=== PATIENT | male | born 1945 | race Caucasian/White ===

== ENCOUNTER 2019-09-06 12:02 | Emergency (ER) | payer OTHER ==
[2019-09-06] MEDS ORDERED: Bacitracin Oint 1 GM U/D Packet TOP ONE (13:24)
--- NOTE | 2019-09-06 13:28 | EDM.PDOC ---
ED HPI GENERAL MEDICAL PROBLEM - General Chief Complaint: Laceration Stated Complaint: SEIZURE, FALL HIT HEAD Time Seen by Provider: 09/06/19 12:45 Source of Information: Reports: Patient History Limitations: Reports: No Limitations - History of Present Illness INITIAL COMMENTS - FREE TEXT/NARRATIVE: 74-year-old male had a seizure and struck the back of his head on a metal lamp stand sustaining a laceration. He is here for repair. Onset: Sudden Duration: Hour(s): (1 hour ago) Location: Reports: Head (Left occipital scalp) Associated Symptoms: Reports: No Other Symptoms, Other (Chronic recurring seizures). Denies: Headaches, Shortness of Breath - Related Data Allergies Allergy/AdvReac Type Severity Reaction Status Date / Time No Known Allergies Allergy Verified 09/06/19 12:43 Home Meds: Home Meds Aspirin [Aspirin EC] 325 mg PO DAILY 09/06/19 [History] Citalopram [Citalopram HBr] 40 mg PO DAILY 09/06/19 [History] Diltiazem HCl [Diltiazem 24Hr Cd] 240 mg PO BEDTIME 09/06/19 [History] Levothyroxine [Synthroid] 50 mcg PO DAILY 09/06/19 [History] PHENobarbitaL [Phenobarbital] 64.8 mg PO BID 09/06/19 [History] Rosuvastatin [Crestor] 10 mg PO BEDTIME 09/06/19 [History] atenoloL [Atenolol] 100 mg PO BEDTIME 09/06/19 [History] carBAMazepine [Carbamazepine ER] 400 mg PO TID 09/06/19 [History] Past Medical History HEENT History: Reports: Impaired Vision Cardiovascular History: Reports: Afib, Hypertension Genitourinary History: Reports: Other (See Below) Other Genitourinary History: UTI 1 year ago Neurological History: Reports: Concussion, Seizure Psychiatric History: Reports: Depression Endocrine/Metabolic History: Reports: Hypothyroidism - Past Surgical History HEENT Surgical History: Reports: Cataract Surgery GI Surgical History: Reports: Colonoscopy Musculoskeletal Surgical History: Reports: Other (See Below) Other Musculoskeletal Surgeries/Procedures:: Duputrens contracture Social & Family History - Tobacco Use Smoking Status *Q: Former Smoker Years of Tobacco use: 2 Packs/Tins Daily: 0.5 Used Tobacco, but Quit: Yes Month/Year Tobacco Last Used: 40 years ago Second Hand Smoke Exposure: No - Caffeine Use Caffeine Use: Reports: Coffee, Soda Other Caffeine Use: 1 cup per day. 1 soda per day - Recreational Drug Use Recreational Drug Use: No ED ROS GENERAL - Review of Systems Review Of Systems: See Below Constitutional: Denies: Fever, Chills Respiratory: Denies: Shortness of Breath Cardiovascular: Denies: Chest Pain GI/Abdominal: Denies: Abdominal Pain Neurological: Reports: Confusion (Mild postictal confusion when he first arrived , that is resolved) Psychiatric: Reports: No Symptoms ED EXAM, SKIN/RASH Exam: See Below Exam Limited By: No Limitations General Appearance: Alert, No Apparent Distress Eye Exam: Bilateral Eye: EOMI Head: Other (Patient has a 2 cm scalp laceration on the left occipital scalp, is through the subcutaneous tissue) Respiratory/Chest: No Respiratory Distress Course - Vital Signs Last Recorded V/S: Last Vital Signs Temp 96.2 F L 09/06/19 12:49 Pulse 90 09/06/19 12:49 Resp 17 09/06/19 12:49 BP 134/81 09/06/19 12:49 Pulse Ox 95 09/06/19 12:49 - Orders/Labs/Meds Meds: Medications Discontinued Medications Generic Name Dose Route Start Last Admin Trade Name Flakoq PRN Reason Stop Dose Admin Bacitracin 1 dose 09/06/19 13:24 09/06/19 13:28 Bacitracin Oint 1 Gm TOP 09/06/19 13:25 1 dose ONETIME ONE Administration Lidocaine HCl 5 ml 09/06/19 13:24 09/06/19 13:28 Xylocaine-Mpf 1% INJECT 09/06/19 13:25 5 ml ONETIME ONE Administration - Re-Assessments/Exams Free Text/Narrative Re-Assessment/Exam: 09/06/19 13:39 The wound was anesthetized with 1% lidocaine, washed with tap water, and 5 jumana were used to close the laceration. Topical bacitracin and a wraparound pressure dressing was applied and the jumana can be removed in 1 week. Departure - Departure Time of Disposition: 14:04 Disposition: Home, Self-Care 01 Clinical Impression: Occipital scalp laceration Qualifiers: Encounter type: initial encounter Qualified Code(s): S01.01XA - Laceration without foreign body of scalp, initial encounter - Discharge Information Instructions: Laceration Care, Adult, [id number] Referrals: Gloria Foreman MD [Primary Care Provider] - Forms: ED Department Discharge Care Plan Goals: Keep wound clean while healing and jumana can be removed in 1 week. Recheck sooner if concerns of infection or not healing satisfactorily. Sepsis Event Note (ED) - Evaluation Sepsis Screening Result: No Definite Risk - Focused Exam Vital Signs: Vital Signs Temp Pulse Resp BP Pulse Ox 09/06/19 12:49 96.2 F L 90 17 134/81 95 09/06/19 12:37 96.2 F L 90 17 134/81 95
== END 2019-09-06 14:04 | disposition home or self-care (01) ==
LOC: JP.ED 12:02
DX: S01.01XA Laceration without foreign body of scalp, initial encounter (principal); I48.91 Unspecified atrial fibrillation; I10 Essential (primary) hypertension; F32.9 Major depressive disorder, single episode, unspecified; E03.9 Hypothyroidism, unspecified; Z79.82 Long term (current) use of aspirin; Z79.899 Other long term (current) drug therapy; Z87.891 Personal history of nicotine dependence; W22.8XXA Striking against or struck by other objects, initial encounter
CPT/HCPCS: 12001; 99283; J2001; 99282

== ENCOUNTER 2022-05-16 17:15 | Emergency (ER) | payer OTHER ==
[2022-05-16] MEDS ORDERED: Nitrofurantoin Monohydrate/Macrocrystalline 100 MG Cap PO ONE (17:54)
== END 2022-05-16 18:24 | disposition home or self-care (01) ==
LOC: JP.ED 17:15
DX: N39.0 Urinary tract infection, site not specified (principal); R31.0 Gross hematuria; R53.83 Other fatigue; R30.0 Dysuria; R35.0 Frequency of micturition; I48.91 Unspecified atrial fibrillation; I10 Essential (primary) hypertension; E03.9 Hypothyroidism, unspecified; Z79.82 Long term (current) use of aspirin; Z88.5 Allergy status to narcotic agent; Z79.899 Other long term (current) drug therapy
CPT/HCPCS: 36415; 80048; 81001; 85025; 85610; 85730; 87086; 99283; A9270